=== PATIENT | female | born 1955 | race Caucasian/White ===

== ENCOUNTER 2020-07-19 07:51 | Day surgery (SDC) | payer MEDICARE ==
[~2020-07-19 07:51] MED LIST: Ak-Dilate OPHTHALMIC*** 1.065 ML, Cyclogyl 1% OPHTH SOL 5 ML 1.065 ML, GATIFLOXACIN 0.5... OP ONE; BETADINE 5% OPHTHALMIC 30 ML OP ONE; Lactated Ringers 1,000 ML IV SCH; NON-FORMULARY ITEM OP ONE; TETRACAINE 0.5% STERI-UNIT SOL OP ONE; cefUROXime sodium 0.005 GM in Sodium Chloride Flush 30 ML*** 0.5 ML IJ SCH
[2020-07-19] MEDS ORDERED: Lactated Ringers 1,000 ML IV ONE (08:00)
[2020-07-19] MEDS: TETRACAINE 0.5% STERI-UNIT SOL OP ONE ×2 (08:58→09:28)
[2020-07-19] MEDS ORDERED: ACETAZOLAMIDE 250 MG TABLET PO ONE (09:00)
[2020-07-19] MEDS ORDERED: Zofran 4 MG/2 ML VIAL IV PRN (09:00)
[2020-07-19] MEDS ORDERED: DIPRIVAN 200 MG/20 ML IV ONE (09:53)
[2020-07-19] MEDS ORDERED: Xylocaine-Mpf 2% 5 Ml Vial ONE (10:00)
[2020-07-19] MEDS ORDERED: Epinephrine Preservative Free 1 MG/ML INTRAOP ONE (10:00)
[2020-07-19] MEDS ORDERED: LIDOCAINE HCL 1% 50 MG/5 ML VL PF IJ ONE (10:00)
[2020-07-19 11:03] VITALS: BP 122/79; PULSE 75; O2SAT 97
--- NOTE | 2020-07-20 11:36 | OP ---
DATE/TIME OF OPERATION: 07/19/2020 0955 TIME DICTATED: 1321 PREOPERATIVE DIAGNOSIS: Senile cataract of right eye. POSTOPERATIVE DIAGNOSIS: Senile cataract of right eye. SURGEON: Masoud Parkinson MD PURCHASING CONTRACTING CLERK: None. OPERATION: Cataract extraction of right eye with an intraocular lens implant. STANDARD __X___ COMPLEX ANESTHESIA: MAC. ___X___ Monitored anesthesia care in combination with topical and intra-cameral anesthesia (because of the established specific risk of reflux, arrhythmias, or an anxiety attack associated with ocular manipulation as well as difficulty of the speed winder to manage such potentially catastrophic events while simultaneously attempting to complete the surgical procedure, it was deemed necessary for the patient's safety to have an anesthesiologist or a nurse head butler present during the procedure whenever possible. The anesthesiologist or the nurse head butler was utilized to monitor and regulate the intravenous sedation of the patient, so the patient was cooperative, relaxed, and comfortable). Topical anesthesia using Tetracaine eye drops together with intra cameral anesthesia using Lidocaine 1% MPF. The nurse was utilized to monitor the patient. ANESTHESIA PROVIDER: Tolu Oro CRNA. COMPLICATIONS: None. BLOOD LOSS: None. INDICATIONS: The patient is undergoing cataract surgery in the hopes of eliminating the visual complaints and difficulty. PROCEDURE: After arriving at the facility's outpatient surgery area, an IV was started; the patient was given 5 mg of p.o. Versed. (If an anesthesia provider was not monitoring the patient) The patient was then given topical anesthetic Tetracaine eye drops. A cotton pellet was soaked into a solution of a combination of Zymaxid 0.5%, Percy-Synephrine 2.5% and Ocufen (other drops might have been substituted referenced in the patient's record). The pellet was inserted by the RN into the lower conjunctival cul-de-sac with a sterile forceps and left for 20 minutes. The pellet was then removed by the RN with a sterile forceps before taking the patient to the operating room. The preoperative area nurse identified the patient and marked the correct eye to be operated on. I identified the correct eye to be operated on and marked it appropriately in the outpatient surgery area. The patient was then taken into the operating room. Tetracaine eye drops were installed again in the correct eye. The eyelids and the lashes and the lid margins were scrubbed with Betadine solution. One drop of the diluted Betadine solution was placed in the conjunctival cul-de-sac for 45 seconds and then was irrigated. A drop of Tetracaine Gel was placed in the conjunctival cul-de-sac. The patient's forehead was taped to secure it during the procedure. The patient was monitored. The patient was then draped in the usual way for this procedure. An eye speculum was used to separate the eyelids. The eye was then fixated and a temporal 2.5 mm incision was made in the clear cornea temporally at the limbus. Through the incision, 0.25 cc of 1% non-preserved lidocaine was injected into the anterior chamber for intracameral anesthesia. The anterior chamber was then filled with viscoelastic. The pupil was small. I felt that it would be safer to mechanically dilate the pupil. A Malyugin ring was used at this point which dilated the pupil. That was removed at the end of the procedure prior to aspiration of the viscoelastic from the anterior chamber and posterior to the intraocular lens implant. The cataract had a great amount of cortical changes. That rendered seeing the anterior capsule difficult for a safe performance of an anterior capsulotomy. I injected an air bubble into the anterior chamber. I then injected 1 ML of vision blue solution into the anterior chamber. The vision blue solution was irrigated from the anterior chamber after 30 seconds. The anterior capsule was stained which facilitated performing the anterior capsulotomy safely. After that was completed, a cystotome was introduced into the anterior chamber and a round anterior capsulotomy was performed. The capsule was removed by a forceps. Hydrodissection was next carried utilizing a 25-gauge cannula and balanced salt solution to delineate the cortical material from the capsule and the nucleus from the cortical material. The nucleus was rotated freely into the capsular bag with no difficulty. The phaco tip of the [employer] Phacoemulsifier was introduced into the anterior chamber and two grooves were made into the nucleus 90 degrees apart. Using two spatulas resulted into the nucleus being fractured into four quadrants. The phaco tip was then used to remove each quadrant of the nucleus. Viscoelastic was used during this process to protect the corneal endothelium. Once the entire nucleus was removed, the phaco tip then was removed and the irrigation tip was introduced into the eye and the cortex was removed. The posterior capsule was polished. It was noticed that there was a tear into the posterior capsule with few vitreous strands into the pupil plan. An anterior vitrectomy was performed. A 23.00 diopter, [id number], posterior chamber lens implant, was inspected and found to be grossly normal. The implant was inserted into the implant injector cartridge; Viscoelastic again was introduced into the anterior chamber, which filled the capsular bag. The implant injector's cartridge tip was placed at the limbal wound and the posterior chamber implant was released into the capsular bag and rotated appropriately. The implant was found to be into the capsular bag and it was centered. 0.2 ml of Tri-Moxi was introduced via 27 gauge cannula into the vitreous cavity through the ciliary processes. Viscoelastic was aspirated from the anterior chamber and posterior to the intraocular lens implant from the capsular bag using the irrigating tip. The anterior chamber was irrigated and filled with 5 cc antibiotic solution (500 cc of BSS plus 2 ml of Fortaz 100 mg/ml) ( if patient was not allergic to the medication). The lips of the corneal incision were hydrated using BSS solution. The anterior chamber was checked and found to be water tight. ___X__ One drop each of antibiotic, steroid and NSAID drops (refer to chart for drops used) were placed in the conjunctival cul-de-sac of the operated eye. Patient tolerated the procedure quite well and left the operating room in satisfactory condition. DISCHARGE SUMMARY: The patient was released in stable condition. The patient and those with the patient were given an instruction sheet as of how to care for the eye after surgery as well as counseling on any abnormal laboratory studies by the postoperative RN. The patient was also given an appointment card for follow-up in the office and is to call immediately for any difficulties including but not limited to pain in the eye, decreased vision, discharge from the eye, headache and or fever. DISCHARGE DIAGNOSIS: Pseudophakia of right eye.
== END 2020-07-19 11:11 | disposition home or self-care (01) ==
LOC: SDC 07:51
PROVIDERS: ATTEND Ophthalmology
DX: H25.811 Combined forms of age-related cataract, right eye (principal); F41.9 Anxiety disorder, unspecified; K21.9 Gastro-esophageal reflux disease without esophagitis; M81.0 Age-related osteoporosis without current pathological fracture; Z79.899 Other long term (current) drug therapy
CPT/HCPCS: C1780; J0171; J2001; J2704; A9270-GY

== ENCOUNTER 2020-08-16 08:54 | Day surgery (SDC) | payer MEDICARE ==
[2020-08-16] MEDS ORDERED: ACETAZOLAMIDE 250 MG TABLET PO ONE (09:00)
[2020-08-16] MEDS ORDERED: Zofran 4 MG/2 ML VIAL IV PRN (09:00)
[2020-08-16] MEDS ORDERED: Lactated Ringers 1,000 ML IV ONE (09:12)
[2020-08-16] MEDS ORDERED: Epinephrine Preservative Free 1 MG/ML INTRAOP ONE (10:00)
[2020-08-16] MEDS ORDERED: LIDOCAINE HCL 1% 50 MG/5 ML VL PF IJ ONE (10:00)
[2020-08-16] MEDS ORDERED: DIPRIVAN 200 MG/20 ML IV ONE ×2 (11:20→11:40)
[2020-08-16] MEDS ORDERED: ROBINUL ONE (11:41)
[2020-08-16] MEDS ORDERED: Xylocaine-Mpf 2% 5 Ml Vial ONE (11:41)
[2020-08-16 12:17] VITALS: O2SAT 99
[2020-08-16 12:24] VITALS: BP 116/69; PULSE 74
== END 2020-08-16 12:35 | disposition home or self-care (01) ==
LOC: SDC 08:54
PROVIDERS: ATTEND Ophthalmology
DX: H25.812 Combined forms of age-related cataract, left eye (principal); Z79.899 Other long term (current) drug therapy
CPT/HCPCS: C1780; J0171; J2001; J2704; A9270-GY

== ENCOUNTER 2024-07-07 06:23 | Day surgery (SDC) | payer MEDICARE ==
[2024-07-07] MEDS: Lactated Ringers 1,000 ML IV SCH (06:35)
[2024-07-07 06:51] VITALS: RESP 18
[2024-07-07] MEDS ORDERED: DIPRIVAN 200 MG/20 ML IV ONE (08:11)
[2024-07-07 08:52] VITALS: TEMP 97.7; O2SAT 96
[2024-07-07 09:08] VITALS: BP 116/62; PULSE 66
--- NOTE | 2024-07-09 10:03 | OP ---
SURGERY DATE/TIME: 07/07/2024 4015-6071 PREOPERATIVE DIAGNOSES: 1) Epigastric pain. 2) Positive Cologuard. POSTOPERATIVE DIAGNOSIS: 1) Hiatal hernia. 2) Mild gastritis. 3) Polyp in the cecum. 4) Polyp in the sigmoid colon. PROCEDURE: 1) Esophagogastroduodenoscopy with cold forceps biopsy of gastric antrum. 2) Colonoscopy with hot polypectomy of the polyp in cecum and cold snare removal of the polyp in sigmoid colon. SURGEON: Ruben Burnett MD ANESTHESIA: Medications given by the anesthesia department. INDICATIONS: The patient is a 69-year-old white female who presents now for endoscopic evaluation. She reports she has been having problems with epigastric pain especially when lying down at night. She does take omeprazole but has not been consistent with this. The patient denies any reflux. The patient also reports she had a positive Cologuard and she has never had a colonoscopy previously. The patient is felt to need to have endoscopic evaluation. She was appraised of the risks of the procedure including risk of perforation, phlebitis, untoward reaction to medication, bleeding, and missed lesions. The patient verbalized her understanding and desired to have procedure performed. DESCRIPTION OF PROCEDURE AND FINDINGS: The patient was given medication by the anesthesia department. She had continuous pulse oximetry, ECG monitoring, and intermittent blood pressure monitoring during the examination. She was placed in left lateral decubitus position. A bite block was placed. Flexible Olympus gastroscope was used to intubate the oropharynx. A view of the larynx was normal. The scope was easily introduced in the esophagus which appeared to be normal throughout its length to the EG junction where there appeared to be a small hiatal hernia. The stomach was entered where normal gastric rugal folds were seen and these distended nicely with insufflation of air. The scope was passed along the greater curvature of the stomach to the antrum. Pylorus was encountered and intubated. Duodenum was inspected and found to be normal. The scope was withdrawn toward the stomach and retroflexed view was obtained of the lesser curvature, fundus, and cardia regions of the stomach and there appeared to be the presence of a small hiatal hernia. The scope was then redirected toward the gastric antrum where biopsies were obtained to rule out the presence of Helicobacter pylori-type organisms. The scope was removed from the patient who tolerated the procedure. Next, a digital rectal examination was performed and revealed normal anal sphincter tone and no masses. Flexible Olympus videocolonoscope was used to intubate the rectum. A view of the colon was developed sequentially to the cecum where an approximately 1.2 cm polyp was noted, was sessile. It was removed using the snare and electrocautery and was retrieved for pathologic evaluation. There was noted also to be a smaller polyp in the sigmoid colon. This was removed using cold snare technique but we were unable to obtain the polyp fragments for evaluation. No other mucosal lesions being encountered, the scope was removed from the patient who tolerated the procedure well and sent back to outpatient recovery in good condition. The prep was noted to be good.
== END 2024-07-07 09:12 | disposition home or self-care (01) ==
LOC: SDC 06:23
PROVIDERS: ATTEND Family Medicine
DX: K44.9 Diaphragmatic hernia without obstruction or gangrene (principal); R10.13 Epigastric pain; R19.5 Other fecal abnormalities; D12.0 Benign neoplasm of cecum; K29.70 Gastritis, unspecified, without bleeding
CPT/HCPCS: 99100; J2704